=== PATIENT | male | born 1985 | race Caucasian/White ===

== ENCOUNTER 2017-02-12 02:04 | Emergency (ER) | payer BC ==
[2017-02-12] MEDS ORDERED: ONDANSETRON 4 MG TAB.RAPDIS PO ONE (02:49)
[2017-02-12] MEDS ORDERED: MORPHINE SULFATE 10 MG/ML INJ IM ONE (02:49)
--- NOTE | 2017-02-12 02:51 | ER Document Report ---
ED GI/ - General Chief Complaint: Testicular Pain Stated Complaint: TESTICULAR PAIN Notes: Patient is a 31-year-old male that comes emergency department for chief complaint of sudden onset of severe right testicular pain, he states he awoke out of sleep tonight, pain started at about 1 AM today. Patient states his right testicle appears to be drawn up. He denies vomiting, injury, or any other symptoms. He denies any daily medications, past medical history of asthma. TRAVEL OUTSIDE OF THE [place] IN LAST 30 DAYS: No - Related Data Allergies/Adverse Reactions: No Known Allergies Allergy (Unverified 02/12/17 02:19) Home Medications: Current Home Medications Albuterol Sulfate [Proair HFA] 1 - 2 puff IH Q4HP PRN 02/12/17 [History] Fluticasone/Vilanterol [Breo Ellipta 100-25 Mcg INH] 1 dose IH DAILY 02/12/17 [ History] Past Medical History - General Information source: Patient - Social History Smoking Status: Never Smoker Chew tobacco use (# tins/day): No Frequency of alcohol use: Occasional Drug Abuse: None Lives with: Family Family History: Reviewed & Not Pertinent Patient has suicidal ideation: No Patient has homicidal ideation: No Pulmonary Medical History: Reports: Hx Asthma Renal/ Medical History: Denies: Hx Peritoneal Dialysis Surgical Hx: Negative - Immunizations Immunizations up to date: Yes Hx Diphtheria, Pertussis, Tetanus Vaccination: Yes Review of Systems - Review of Systems Constitutional: No symptoms reported EENT: No symptoms reported Cardiovascular: No symptoms reported Respiratory: No symptoms reported Gastrointestinal: No symptoms reported Genitourinary: See HPI Male Genitourinary: No symptoms reported Musculoskeletal: No symptoms reported Skin: No symptoms reported Hematologic/Lymphatic: No symptoms reported Neurological/Psychological: No symptoms reported Physical Exam - Vital signs Vitals: Temp Pulse Resp BP Pulse Ox 97.8 F 76 18 143/119 H 99 02/12/17 02:11 02/12/17 02:11 02/12/17 02:11 02/12/17 02:11 02/12/17 02:11 Interpretation: Normal - General General appearance: Anxious In distress: Moderate - Patient standing at the bedside, slightly bent over, appears to be in pain - HEENT Head: Normocephalic, Atraumatic Eyes: Normal Pupils: PERRL - Respiratory Respiratory status: No respiratory distress Chest status: Nontender Breath sounds: Normal Chest palpation: Normal - Cardiovascular Rhythm: Regular Heart sounds: Normal auscultation Murmur: No - Abdominal Inspection: Normal Distension: No distension Bowel sounds: Normal Tenderness: Nontender. No: Tender, Guarding Organomegaly: No organomegaly - Genitourinary Inspection: No: Blood at meatus, Penile discharge Tenderness: Testicle tender - right side only, testicle appears to be drawn up, tender throughout, cremasteric reflexes absent on the right but present on the left, no palpable hernias or other abnormalities noted, normal temperature, no erythema or cyanosis present Cremasteric reflex: No: Right reflex absent Scrotum: No: Swelling, Redness, Hot to touch - Back Back: Normal, Nontender - Extremities General upper extremity: Normal inspection, Nontender, Normal color, Normal ROM , Normal temperature General lower extremity: Normal inspection, Nontender, Normal color, Normal ROM , Normal temperature, Normal weight bearing. No: Korin's sign - Neurological Neuro grossly intact: Yes Cognition: Normal Orientation: AAOx4 [place] Coma Scale Eye Opening: Spontaneous Tony Coma Scale Verbal: Oriented Tony Coma Scale Motor: Obeys Commands [place] Coma Scale Total: 15 Speech: Normal Motor strength normal: LUE, RUE, LLE, RLE Sensory: Normal - Psychological Associated symptoms: Anxious - Skin Skin Temperature: Warm Skin Moisture: Dry Skin Color: Normal Course - Re-evaluation Re-evalutation: Initial presentation consistent with testicular torsion, patient given pain medication, immediately sent ultrasound. On reexamination, there no longer is drawing up of the right testicle, now there is normal cremasteric reflex, patient is in no distress. Consistent with torsion which has resolved, probably during ultrasound. Patient was discussed with Dr. Hathaway. Ultrasound showing good blood flow bilaterally, small hydroceles bilaterally, no acute findings. Called and spoke with urologist Dr. Malcolm Pulido urology, his recommendation is for patient be seen in the office in about 1 week, to avoid any significant physical exertion specifically lifting if possible, and for patient be given return precautions. Discussed with patient, given limited work duty note, discussed precautions for return in detail, patient states he will follow-up and states understanding about precautions. - Vital Signs Vital signs: Temp Pulse Resp BP Pulse Ox 97.8 F 72 16 136/84 H 100 02/12/17 02:11 02/12/17 04:42 02/12/17 04:42 02/12/17 04:42 02/12/17 04:42 Discharge - Discharge Clinical Impression: Testicular pain Condition: Stable Disposition: HOME, SELF-CARE Additional Instructions: You had temporary testicular torsion by exam tonight, this has resolved, ultrasound shows good blood flow and no other concerning abnormalities. Please follow-up with the urology referral in 5-7 days. Limit physical activity, specifically limit lifting, do this until cleared by Urology. Torsion is more likely to recur once it has happened. Return immediately if you develop repeated symptoms or new concerning symptoms. Call one of these clinics for followup: [facility] Address: [address] [place] [id number] [facility] Address: [address] [place] [id number] Forms: Special Work Note, Return to Work
[2017-02-12 04:43] VITALS: BP 136/84
== END 2017-02-12 04:47 | disposition home or self-care (01) ==
LOC: ER 02:04
DX: N50.811 Right testicular pain (principal); N43.3 Hydrocele, unspecified; J45.909 Unspecified asthma, uncomplicated
CPT/HCPCS: 99284; 96372; 76870; 93976; S0119; J2270